=== PATIENT | female | born 1950 | race Caucasian/White ===

== ENCOUNTER 2021-10-19 23:44 | Inpatient (IN) | payer MEDICARE ==
[~2021-10-19] VITALS: Ht 165.1 cm; Wt 83.0 kg
[2021-10-19] MEDS ORDERED: PROPOFOL 1,000 MG/100 ML VIAL As Ordered ONE (23:59)
[2021-10-20] VITALS (13 sets, daily range): BP systolic 135–162; BP diastolic 88–97
[2021-10-20] MEDS ORDERED: ETOMIDATE INJ 20MG/10ML VIAL IV STA (00:06)
[2021-10-20] MEDS ORDERED: ROCURONIUM BROMIDE 50 MG/5 ML VIAL IV SCH (00:10)
[2021-10-20 00:13] LABS: HEMATOCRIT 40.4 % (36.0-47.0); HEMOGLOBIN 13.1 g/dl (12.0-15.5); MEAN CORPUSCULAR HEMOGLOBIN 31.3 pg (27.0-33.0); MEAN CORPUSCULAR HGB CONC 32.4 g/dl (32.0-36.5); MEAN CORPUSCULAR VOLUME 96.4 fl (80.0-96.0); PLATELET COUNT, AUTOMATED 245 10^3/uL (150-450); RED BLOOD COUNT 4.19 10^6/uL (4.00-5.40); WHITE BLOOD COUNT 16.1 10^3/uL (4.0-10.0)
[2021-10-20] MEDS ORDERED: propofoL 1,000 MG in IV 1 EA IV SCH ×2 (00:15→05:40)
[2021-10-20 00:37] LABS: ALBUMIN 3.2 GM/DL (3.2-5.2); BILIRUBIN,DIRECT 0.2 MG/DL (0.0-0.2); BILIRUBIN,TOTAL 0.2 MG/DL (0.2-1.0); CALCIUM LEVEL 7.9 MG/DL (8.8-10.2); CK-MB VALUE MASS 2.5 NG/ML (<3.6); CREATININE FOR GFR 1.12 MG/DL (0.55-1.30); GLOMERULAR FILTRATION RATE 51.1 (>39); MAGNESIUM LEVEL 2.5 MG/DL (1.8-2.4); MB/CK RELATIVE INDEX 2.08 (< OR =4); PHOSPHORUS LEVEL 5.9 MG/DL (2.5-4.9); POTASSIUM SERUM 3.3 MEQ/L (3.5-5.1); TOTAL PROTEIN 6.3 GM/DL (6.4-8.2)
[2021-10-20] MEDS ORDERED: NS 1,000 ML IV SCH (00:40)
[2021-10-20 00:42] LABS: BASOPHILS 1 % (0-1); LYMPHOCYTES 37 % (16-44); METAMYELOCYTES 1 % (0-0); MONOCYTES 6 % (0-5); NEUTROPHILS 46 % (28-66)
[2021-10-20 00:43] LABS: PLATELET CLUMPS SMALL AMT; PLATELET ESTIMATE NORMAL (NORMAL)
[2021-10-20 00:52] LABS: ABG BASE EXCESS -11.8 (-2.0-2.0); ABG O2 SATURATION 99.4 % (95.0-99.0); ABG PARTIAL PRESSURE CO2 36.8 mmHg (35.0-45.0); ABG STANDARD HCO3 15.4 MEQ/L (22.0-26.0); ABG TOTAL CO2 16.1 MEQ/L (23.0-31.0)
[2021-10-20 00:53] LABS: ABG pH (ARTERIAL) 7.227 UNITS (7.350-7.450)
[2021-10-20] MEDS ORDERED: cefTRIAXone SOD 1 GM in D5W MINI-BAG PLUS 50 ML IV ONE (01:20)
[2021-10-20] MEDS ORDERED: AZITHROMYCIN INJ 500 MG, VIAL MATE ADAPTER 1 EACH in NS 250 ML IV ONE (01:20)
[2021-10-20] MEDS ORDERED: NS 2,490 ML in IV 1 EA IV ONE (01:25)
[2021-10-20] MEDS ORDERED: ISOVUE-370 76% 100ML VIAL As Ordered ONE (01:30)
[2021-10-20] MEDS ORDERED: CLOPIDOGREL 300 MG TAB (PLAVIX) PO ONE (02:40)
[2021-10-20] MEDS ORDERED: ASPIRIN 300 MG SUPP PR ONE (02:40)
[2021-10-20] MEDS ORDERED: LACRILUBE (AKWA TEARS) OPHTH OINT 3.5 GM OU PRN (03:05)
[2021-10-20] MEDS ORDERED: ACETAMINOPHEN 650 MG SUPP PR PRN (03:05)
[2021-10-20] MEDS ORDERED: ACETAMINOPHEN 650 MG SUPP PR ONE (03:05)
[2021-10-20] MEDS ORDERED: CISATRACURIUM 10MG/ML 20 ML VIAL IV ONE (03:05)
[2021-10-20] MEDS ORDERED: POTASSIUM CHLORIDE 10% LIQ 20 MEQ/15 ML UDC PO ONE (03:25)
[2021-10-20] MEDS ORDERED: HOME MED LIST COMPLETE! XX SCH (04:10)
[2021-10-20] MEDS ORDERED: FAMC250T PO (04:10)
[2021-10-20] MEDS ORDERED: IRBE75TA4 PO (04:10)
[2021-10-20] MEDS ORDERED: ROSU10TA6 PO (04:10)
[2021-10-20] MEDS ORDERED: ESTR62CR PV (04:10)
[2021-10-20 04:12] LABS: ABG BASE EXCESS -4.1 (-2.0-2.0); ABG HCO3 21.6 MEQ/L (22.0-26.0); ABG PARTIAL PRESSURE CO2 41.9 mmHg (35.0-45.0); ABG PARTIAL PRESSURE O2 162.4 mmHg (75.0-100.0); ABG STANDARD HCO3 21.1 MEQ/L (22.0-26.0); ABG TOTAL CO2 22.9 MEQ/L (23.0-31.0); ABG pH (ARTERIAL) 7.331 UNITS (7.350-7.450)
[2021-10-20] MEDS ORDERED: METOPROLOL 5 MG/5 ML VIAL IV STA (05:02)
[2021-10-20] MEDS ORDERED: MIDAZOLAM INJ 2MG/2ML VIAL (J2250 PER 1MG) IV PRN ×2 (05:05→05:40)
[2021-10-20 05:34] LABS: INR 1.02; PROTHROMBIN TIME 13.8 SECONDS (12.7-14.5)
[2021-10-20 05:57] LABS: ALBUMIN 3.6 GM/DL (3.2-5.2); ALT/SGPT 305 U/L (12-78); AMYLASE 158 U/L (25-115); BILIRUBIN,TOTAL 0.4 MG/DL (0.2-1.0); BLOOD UREA NITROGEN 18 MG/DL (7-18); CALCIUM LEVEL 8.1 MG/DL (8.8-10.2); CARBON DIOXIDE LEVEL 23 MEQ/L (21-32); CHLORIDE LEVEL 106 MEQ/L (98-107); CREATININE FOR GFR 0.93 MG/DL (0.55-1.30); GLOMERULAR FILTRATION RATE > 60.0 (>39); GLUCOSE, FASTING 111 MG/DL (70-100); LIPASE 205 U/L (73-393); MAGNESIUM LEVEL 2.4 MG/DL (1.8-2.4); POTASSIUM SERUM 3.3 MEQ/L (3.5-5.1); SODIUM LEVEL 139 MEQ/L (136-145); TOTAL PROTEIN 7.3 GM/DL (6.4-8.2)
[2021-10-20] MEDS ORDERED: INSULIN LISPRO (NovoLOG) PER UNIT SC SCH (06:00)
[2021-10-20] MEDS ORDERED: MORPHINE SULF IN 0.9% NACL 100 MG in IV 1 EA IV SCH ×2 (06:00)
[2021-10-20 06:05] LABS: D-DIMER QUANT > 4000 ng/ml (<500)
[2021-10-20] MEDS ORDERED: CISATRACURIUM 200 MG in NS 480 ML IV SCH (07:00)
[2021-10-20] MEDS ORDERED: ENOXAPARIN 80MG/0.8ML SYRINGE (J1650 PER 10MG) SC SCH (07:00)
[2021-10-20 07:16] LABS: ABG BASE EXCESS -3.7 (-2.0-2.0); ABG HCO3 19.7 MEQ/L (22.0-26.0); ABG O2 SATURATION 98.4 % (95.0-99.0); ABG PARTIAL PRESSURE CO2 31.1 mmHg (35.0-45.0); ABG PARTIAL PRESSURE O2 105.8 mmHg (75.0-100.0); ABG STANDARD HCO3 21.4 MEQ/L (22.0-26.0); ABG TOTAL CO2 20.6 MEQ/L (23.0-31.0); ABG pH (ARTERIAL) 7.419 UNITS (7.350-7.450)
[2021-10-20] MEDS ORDERED: IPRATROPIUM 0.5MG/ALBUTEROL 2.5MG INH SOL UD 3ML (DUONEB) NEB SCH (08:00)
[2021-10-20 08:34] LABS: HEMATOCRIT 41.9 % (36.0-47.0); HEMOGLOBIN 13.6 g/dl (12.0-15.5); MEAN CORPUSCULAR HEMOGLOBIN 31.3 pg (27.0-33.0); MEAN CORPUSCULAR HGB CONC 32.5 g/dl (32.0-36.5); MEAN CORPUSCULAR VOLUME 96.3 fl (80.0-96.0); PLATELET COUNT, AUTOMATED 182 10^3/uL (150-450); RED BLOOD COUNT 4.35 10^6/uL (4.00-5.40); WHITE BLOOD COUNT 12.3 10^3/uL (4.0-10.0)
[2021-10-20] MEDS ORDERED: PANTOPRAZOLE 40MG VIAL IV SCH ×2 (09:00)
[2021-10-20] MEDS ORDERED: LACRILUBE (AKWA TEARS) OPHTH OINT 3.5 GM OU SCH (09:00)
[2021-10-20] MEDS ORDERED: ASPIRIN ENTERIC 325 MG TAB PO SCH (09:00)
[2021-10-20] MEDS ORDERED: ENOXAPARIN 30MG/0.3ML SYRINGE (J1650 PER 10MG) SC SCH (09:00)
[2021-10-20] MEDS ORDERED: CHLORHEXIDINE GLUCONATE 0.12 % 15ML UDC (PERIDEX ORAL RINSE) MT SCH ×2 (09:00)
[2021-10-20] MEDS ORDERED: METOPROLOL TART 25 MG TABLET PO SCH (09:00)
[2021-10-20] MEDS ORDERED: ATORVASTATIN 20 MG TAB PO SCH (09:00)
[2021-10-20] MEDS ORDERED: CLOPIDOGREL 75 MG TAB PO SCH (09:00)
[2021-10-20] MEDS ORDERED: METOPROLOL TART 50 MG TAB PO SCH (09:00)
[2021-10-20 09:48] LABS: ALBUMIN 3.2 GM/DL (3.2-5.2); ALT/SGPT 286 U/L (12-78); BILIRUBIN,TOTAL 0.5 MG/DL (0.2-1.0); BLOOD UREA NITROGEN 19 MG/DL (7-18); CALCIUM LEVEL 8.2 MG/DL (8.8-10.2); CARBON DIOXIDE LEVEL 13 MEQ/L (21-32); CHLORIDE LEVEL 112 MEQ/L (98-107); CREATININE FOR GFR 0.31 MG/DL (0.55-1.30); GLOMERULAR FILTRATION RATE > 60.0 (>39); GLUCOSE, FASTING 86 MG/DL (70-100); MAGNESIUM LEVEL 2.4 MG/DL (1.8-2.4); PHOSPHORUS LEVEL 3.8 MG/DL (2.5-4.9); POTASSIUM SERUM 4.6 MEQ/L (3.5-5.1); SODIUM LEVEL 141 MEQ/L (136-145); TOTAL PROTEIN 6.7 GM/DL (6.4-8.2)
[2021-10-20] MEDS ORDERED: cefTRIAXone SOD 1 GM in D5W MINI-BAG PLUS 50 ML IV SCH (22:00)
== END 2021-10-20 09:39 | disposition short-term general hospital (02) | DRG 280 ==
LOC: EDBD 23:44 → M ED 23:44 → M ED INP 10-20 05:39 → M ICU 10-20 06:17
PROVIDERS: ADMIT Internal Medicine Pulmonary Disease; ATTEND Internal Medicine Pulmonary Disease
PROC: B246ZZZ Ultrasonography of Right and Left Heart (ICD-10-PCS; principal; 2021-10-20)
PROC: B020YZZ Computerized Tomography (CT Scan) of Brain using Other Contrast (ICD-10-PCS; 2021-10-20)
PROC: 5A1935Z Respiratory Ventilation, Less than 24 Consecutive Hours (ICD-10-PCS; 2021-10-20)
DX: I46.9 Cardiac arrest, cause unspecified (principal); I21.4 Non-ST elevation (NSTEMI) myocardial infarction; J96.90 Respiratory failure, unspecified, unspecified whether with hypoxia or hypercapnia; E87.2 Acidosis; G93.1 Anoxic brain damage, not elsewhere classified; I10 Essential (primary) hypertension; E78.00 Pure hypercholesterolemia, unspecified; E87.6 Hypokalemia; D72.829 Elevated white blood cell count, unspecified; Z88.0 Allergy status to penicillin; Z20.822 Contact with and (suspected) exposure to COVID-19; Z79.899 Other long term (current) drug therapy